=== PATIENT | male | born 1995 | race Caucasian/White ===

== ENCOUNTER 2020-10-04 21:51 | Emergency (ER) | payer MEDICAID ==
[~2020-10-04] VITALS: Ht 180.3 cm; Wt 65.8 kg
[2020-10-04 21:51] VITALS: BP 114/75
[2020-10-05 01:28] VITALS: BP 109/57
[2020-10-05 02:02] LABS: BARBITURATE, URINE NEGATIVE ng/ml (NEG <=200); BENZODIAZEPINE, URINE NEGATIVE ng/mL (NEG <=200); CANNABINOID, URINE POSITIVE ng/mL (NEG <=50); COCAINE, URINE NEGATIVE ng/mL (NEG <=300); OPIATE, URINE NEGATIVE ng/mL (NEG <=2000); PHENCYCLIDINE SCREEN,URINE NEGATIVE ng/mL (NEG <=25)
== END 2020-10-05 01:28 | disposition home or self-care (01) ==
LOC: MED 21:51
DX: S51.812A Laceration without foreign body of left forearm, initial encounter (principal); R46.89 Other symptoms and signs involving appearance and behavior; Z20.822 Contact with and (suspected) exposure to COVID-19; X78.9XXA Intentional self-harm by unspecified sharp object, initial encounter; Y93.89 Activity, other specified; Y92.89 Other specified places as the place of occurrence of the external cause; Y99.8 Other external cause status
CPT/HCPCS: 80305; 87426; 99283; U0003